=== PATIENT | female | born 1980 | race African-American/Black ===

== ENCOUNTER → 2020-12-10 | Outpatient (CLI) | payer OTHER ==
[2016-03-08 12:45] VITALS: BP 118/72
--- NOTE | 2020-12-10 17:23 | RAD ---
INDICATION: Reason: ABNORMAL UTERINE BLEEDING / Spl. Instructions: / History: COMPARISON: None. TECHNIQUE: Grayscale and color ultrasound images uterus and adnexa. FINDINGS: Uterus: 138 x 81 x 65 mm. Endometrial stripe is 7 mm. Right Ovary: 34 x 23 x 20 mm. Left Ovary: 43 x 23 x 21 mm. Vascular flow identified to bilateral ovaries. Heterogeneity throughout the uterus with multiple suspected solid masses seen measuring up to 73 x 43 mm. Additional hypoechoic solid-appearing mass near the fundus within the myometrium anteriorly tanika uring 33 x 23 mm. IMPRESSION: * Multiple solid-appearing masses are seen within the myometrium most commonly secondary to uterine fibroids. Electronically signed by: Jordan Pompa MD (12/10/2020 5:21 PM) [id number]
== END ==
LOC: US 15:35
PROVIDERS: ATTEND Obstetrics & Gynecology
DX: D25.9 Leiomyoma of uterus, unspecified (principal); N93.9 Abnormal uterine and vaginal bleeding, unspecified
CPT/HCPCS: 76856